=== PATIENT | male | born 1955 | race Caucasian/White ===

== ENCOUNTER 2021-11-16 02:19 | Inpatient (IN) | payer MEDICARE, SELFPAY ==
[2021-11-16] VITALS (48 sets, daily range): BP systolic 102–207; BP diastolic 59–102; PULSE 58–156; RESP 7–27; TEMP 36.2–36.6; O2SAT 93–100; BMI 30.2
--- NOTE | ~2021-11-16 | XR_ITS ---
XR chest 1V portable DATE: 11/16/2021 02:54 INDICATION: Chest pain TECHNIQUE: Portable upright AP chest on 11/16/2021 at 0233 hours COMPARISON: June 25, 2010 PA and lateral chest FINDINGS: Status post sternotomy since 06/25/2010. Normal heart size. Aortic arch calcification. No hi lar or mediastinal enlargement. Mild bilateral apical capping. No pulmonary infiltrate or consolidation, pleural effusion or pulmonar y vascular congestion or pneumothorax is detected. IMPRESSION: Status post sternotomy; no active cardiopulmonary disease Reviewed, dictated and finalized at location A.
--- NOTE | 2021-11-16 02:24 | ECG_ITS ---
Measurements Intervals [place] Rate: 138 P: [place]: 0 QRS: 75 QRSD: 110 T: -62 QT: 310 QTc: 470 Interpretive Statements ATRIAL FIBRILLATION WITH RAPID VENTRICULAR RESPONSE INTRAVENTRICULAR CONDUCTION DELAY ST-T WAVE ABNORMALITY IN ANTEROLAT/INF LEADS- CONSIDER ISCHEMIA BASELINE WANDER- II, III, AVR, AVF ABNORMAL ECG Electronically Signed On 11-16-2021 9:58:54 CDT by Rome Harry D.O.
[2021-11-16 02:37] LABS: Basophils Absolute Auto 0.1 K/mm3 (0.0-0.1); Basophils Percent Auto 0.8 % (0.2-1.2); Eosinophils Absolute Auto 0.5 K/mm3 (0-0.3); Hematocrit 44.9 % (42.0-52.0); Hemoglobin 14.8 g/dL (14.0-18.0); Immature Granulocyte Absolute 0.04 K/mm3 (0.00-0.031); Immature Granulocyte Percent A 0.5 % (0-0.5); Lymphocytes Absolute Auto 2.71 K/mm3 (0.9-3.2); Lymphocytes Percent Auto 31.2 % (18.3-44.2); Mean Corpuscular Hemoglobin 28.1 pg (26-34); Mean Corpuscular Volume 85.4 fl (80-100); Mean Platelet Volume 11.5 fl (7.4-10.4); Monocytes Absolute Auto 0.9 K/mm3 (0.1-0.6); Neutrophils Absolute Auto 4.5 K/mm3 (1.3-6.7); Neutrophils Percent Auto 51.5 % (45.5-73.1); Platelet Count Result 196 k/mm3 (150-375); Red Blood Count 5.26 M/mm3 (4.6-6.20); Red Cell Distribution Width 14.1 % (11.5-14.5); White Blood Count 8.7 K/mm3 (4.5-10.0)
[2021-11-16 02:47] LABS: Alanine Aminotransferase 13 U/L (6-50); Albumin Level 4.7 g/dL (3.5-5.1); Alkaline Phosphatase 91 U/L (38-126); Anion Gap 10 mmol/L (8-16); Aspartate Amino Transferase 18 U/L (17-59); Bilirubin,Total 0.3 mg/dL (0.2-1.3); Blood Urea Nitrogen 17 mg/dL (9-20); Calcium 8.7 mg/dL (8.4-10.2); Carbon Dioxide 25 mmol/L (22-30); Chloride 105 mmol/L (98-107); Estimated CRCL calculation 82 ml/min; Estimated Glomerular Filt Rate > 60; Glucose 169 mg/dL (65-110); Lipase 81 U/L (23-300); Potassium 3.8 mmol/L (3.4-5.0); Prothrombin Time 13.1 Seconds (11.1-14.7); Sodium 140 mmol/L (137-145)
[2021-11-16 02:48] LABS: Partial Thromboplastin Time 35.8 SECONDS (22.3-36.8)
[2021-11-16] MEDS: NITROGLYCERIN SL 0.4 MG TABLET SUBLINGUAL ×2 (02:48→02:53)
--- NOTE | 2021-11-16 02:58 | PC.NURSE ---
to hold 3rd nitro dose d/t patient increased heart rate and pt complaint of feeling flushed after 2nd nitro admin.
[2021-11-16 02:59] LABS: NT Pro B Type Natriuretic Pept 439 pg/mL (5-100); Troponin I 0.016 ng/mL (0.000-0.034)
--- NOTE | 2021-11-16 02:59 | ECG_ITS ---
Measurements Intervals [place] Rate: 92 P: [place]: 0 QRS: 65 QRSD: 109 T: -64 QT: 365 QTc: 452 Interpretive Statements ATRIAL FIBRILLATION CANNOT RULE OUT SEPTAL INFARCT, AGE INDETERMINATE ST-T WAVE ABNORMALITY IN ANTEROLAT/INF LEADS- CONSIDER ISCHEMIA ABNORMAL ECG Electronically Signed On 11-16-2021 10:02:44 CDT by Rome Harry D.O.
[2021-11-16] MEDS: dilTIAZem HCl INJ 25 MG/5 ML VIAL 20 MG IV PUSH (03:03)
--- NOTE | 2021-11-16 03:06 | ED.GENADULT ---
HPI - General Adult General Chief complaint: Chest Pain Stated complaint: CHEST PAIN Time Seen by Provider: 11/16/21 02:33 History of Present Illness HPI narrative: Patient is a 66-year-old gentleman who presents the emergency department with chief complaint of chest pain. Patient reports that he is scheduled to have a cardiac catheterization on Thursday by Dr. Hawley patient states he had a recent positive stress test and has had a prior bypass in the past. Patient states that this evening he got up and noticed that he started having pressure in his chest. Patient states he called EMS he took 4 baby aspirin at that time and is still having a tightness and fullness sensation in his chest the patient also feels as though his heart is beating irregular. Patient reports no prior history of atrial fibrillation. Related Data Home Medications Medication Instructions Recorded Confirmed aspirin 81 mg chewable tablet 81 mg PO DAILY 08/09/20 11/15/21 (Jaqueline Chewable Low Dose Aspirin) lisinopril 20 mg tablet 20 mg PO DAILY 08/09/20 11/15/21 metoprolol tartrate 50 mg tablet 50 mg PO BID 08/09/20 11/15/21 rosuvastatin 5 mg tablet (Crestor) 5 mg PO DAILY 08/09/20 11/15/21 Allergies Allergy/AdvReac Type Severity Reaction Status Date / Time No Known Allergies Allergy Mild Unverified 11/16/21 02:30 Review of Systems Review of Systems: A 10 system review of systems was completed on the patient and is negative except for what is stated in the HPI. Nursing and ancillary documentation was reviewed. [facility] Past Medical History Medical History Arterial disease Benign hypertension Elevated LFTs Hepatitis C Vision loss of right eye Family History Family History Other Carcinoma of colon Diabetes mellitus Family history of cardiovascular disease Family history of coronary artery disease Family history of lung cancer Family history of malignant neoplasm of breast in first degree relative Hypertension Social History Social History Smoking status: Former smoker Tobacco type: cigarettes Second hand tobacco smoke exposure: No Smoking end date: 05/04/04 Alcohol intake: unknown Substance use: never Substance use type: does not use Last use: 15 years ago Spiritual care concerns: No Exam Narrative: GENERAL: Well-appearing, well-nourished, and in no acute distress. HEAD: Normocephalic, atraumatic. EYES: PERRLA and EOMI. ENT: Nares clear, no rhinorrhea or epistaxis. Mucous membranes moist. NECK: Supple. CHEST: Clear to auscultation. No respiratory distress. HEART: Irregular rate and rhythm. No murmur heard. Normal peripheral pulses. ABDOMEN: Soft, nontender, nondistended, normal active bowel sounds. EXTREMITIES: Normal range of motion. No edema. SKIN: Warm, dry, no rash. NEURO: No focal deficits. Alert and oriented x3. PSYCH: Normal mood and affect. Course Course Emergency Course: Initial EKG interpreted by me atrial fibrillation with a rate of [address] segment abnormalities no ST elevation present After receiving nitroglycerin the patient started becoming more tachycardic and had rapid ventricular response with a rate of 138. The patient was given a Cardizem bolus and will be started on a Cardizem drip. Vital Signs Vital signs: Vital Signs Temperature 36.2 C L 11/16/21 02:19 Pulse Rate 95 11/16/21 02:19 Respiratory Rate 20 11/16/21 02:19 Blood Pressure 196/99 H 11/16/21 02:19 Pulse Oximetry 98 11/16/21 02:19 Oxygen Delivery Room Air 11/16/21 02:19 Temperature 36.2 C L 11/16/21 02:19 Pulse Rate 108 H 11/16/21 03:15 Respiratory Rate 27 H 11/16/21 03:15 Blood Pressure 142/69 H 11/16/21 03:12 Pulse Oximetry 96 11/16/21 03:52 Oxygen Delivery Nasal Cannula 11/16/21 03:
[2021-11-16] MEDS: dilTIAZem 100 MG/100 ML 100 MG/100 ML BAG IV CONT (03:07)
[2021-11-16] MEDS: MORPHINE SULFATE (*CRX) 4 MG/ML INJ IV PUSH (03:10)
--- NOTE | 2021-11-16 03:54 | PM.IMHP ---
H&P: HPI History of Present Illness Date/Time: 11/16/21 03:54 Chief Complaint: Chest pain Narrative: This is a 66-year-old male with past medical history significant for coronary artery disease, type 2 diabetes mellitus, former smoker. Patient presents to the emergency room due to sudden onset of chest pain waking him from sleep at around 2:00 a.m., prior to these patient went to bed and was feeling his usual has been his usual state of health although is scheduled for left heart catheterization a coming appointment. Pain is felt like indigestion, it was 6/10 in intensity and felt pounding on his chest decided to come to the emergency room for evaluation of these denies any nausea, vomiting, abdominal pain, diarrhea, pain was nonradiating localized to the retrosternal area did not have any dizziness, lightheadedness, or syncope or near syncope, no ankle swelling no leg swelling no pedal swelling no PND, no orthopnea, no fevers, no rigors, no chills, no cough. Upon arrival to emergency room patient was found to be on AFib with rapid ventricular response and started on diltiazem drip preliminary workup was significant for EKG with ST segment and T-wave changes. Patient is being admitted for further evaluation, management and treatment. Review of Systems Review of Systems: Chest pain, pounding of the chest. Constitutional: Constitutional: Denies body ache(s), Denies chills, Denies fatigue, Denies fever(s), Denies lethargy, Denies malaise, Denies night sweats and Denies weakness Eyes: Eyes: Denies change in vision ENT: Denies dysphagia, Denies vertigo, Denies dizziness, Denies nasal congestion, Denies nasal discharge, Denies nasal obstruction and Denies odynophagia Cardiovascular: Cardiovascular: Reports chest pain, Denies syncope, Denies pedal edema, Reports irregular heart rhythm, Denies leg edema, Denies lightheadedness, Reports palpitations, Denies dyspnea on exertion and Denies paroxysmal nocturnal dyspnea Respiratory: Respiratory: Denies chest congestion, Denies cough and Denies excessive phlegm production Gastrointestinal: Gastrointestinal: Denies abdominal pain, Denies dyspepsia, Denies heartburn, Denies diarrhea, Denies nausea and Denies vomiting Genitourinary: Genitourinary: Denies dysuria Musculoskeletal: Musculoskeletal: Denies back pain, Denies myalgias, Denies joint swelling and Denies muscle weakness Integumentary/Breasts: Skin/Breast: Denies rash Neurologic: Denies vertigo, Denies dizziness, Denies focal weakness and Denies Sensory deficit (Neuro) Psychiatric: Psychiatric: Reports no additional psychiatric complaints and Reports as per HPI Endocrine: Endocrine: Denies cold intolerance, Denies fatigue, Denies flushing, Denies heat intolerance, Denies polyphagia, Denies polydipsia and Denies palpitations Hematologic/Lymphatic: Hematologic/Lymphatic: Reports no additional hematologic/lymphatic complaints and Reports as per HPI Allergic/Immunologic: Allergic/Immunologic: Reports no additional allergic/immunologic complaints and Reports as per HPI PMFSH Past Medical History Medical History Arterial disease Benign hypertension Elevated LFTs Hepatitis C Vision loss of right eye Family History Family History (Updated 11/16/21 @ 05:29 by Sarah Connor RN) Father Carcinoma of colon Family history of cardiovascular disease Acute myocardial infarction Family history of coronary artery disease Hypertension Sibling Diabetes mellitus Family history of coronary artery disease Hx of CABG Family history of malignant neoplasm of breast in first degree relative Hypertension Sibling Diabetes mellitus Family history of coronary artery disease Hx of CABG Heart valve problem Hypertension Mother Family history of lung cancer Social History Social History Smoking status: Former
[2021-11-16 03:55] LABS: Appearance Urine Clear (Clear); Bilirubin Urine Negative (Negative); Blood Urine Trace-lysed (Negative); Glucose Urine UA Negative (Negative); Ketones Urine Negative (Negative); Leukocyte Esterase Ur Negative LEU/UL (Negative); Nitrate Urine Negative (Negative); Protein Urine 1+ mg/dL (Negative); Specific Grav Ur 1.015 (1.001-1.035); Urobilinogen Urine 0.2 mg/dL (<2.0)
[2021-11-16] MEDS: HEPARIN SODIUM 5,000 UNITS/ML VIAL 7500 UNITS IV PUSH (04:04)
[2021-11-16] MEDS: HEPARIN SOD/D5W 100 UNITS/ML 25,000 UNITS/250 ML BAG 15 UNITS IV CONT ×2 (04:04→19:34)
[2021-11-16 04:13] LABS: Mucus Urine Rare /lpf; RBC Urine 0-2 /hpf (0-2); WBC Urine 0-3 /hpf
[2021-11-16 04:24] LABS: Add Urine Microscopic? YES; Color Urine Light Yellow (Yellow)
--- NOTE | 2021-11-16 05:49 | PC.NURSE ---
This patient, Saw Thomas, was admitted to IMU Room 211-01. Patient/family oriented to hospital policies and general routines including ID bracelet, bed and alarms, visiting hours, pain management, procedures, bathroom and other care routines, personal items, smoking policy, room service/diet, and visiting hours. Patient/Family are encouraged to report perceived risks to care and to ask questions if they do not understand what they are told or what they should do.
--- NOTE | 2021-11-16 08:08 | PM.CNCAR ---
Assessment and Plan Assessment and plan (1) Chest pain: Code(s): R07.9 - Chest pain, unspecified Status: Acute (2) Atrial fibrillation with rapid ventricular response: Code(s): I48.91 - Unspecified atrial fibrillation Status: Acute (3) History of coronary artery bypass graft x 3: Code(s): Z95.1 - Presence of aortocoronary bypass graft Status: Acute Plan This is a 66-year-old man with the above-mentioned history of coronary disease. He has a history of recent chest pain incidence that are atypical of angina and an abnormal nuclear stress test as described above. He enters the hospital in the middle of the night with chest discomfort and palpitation was found to be in atrial fibrillation. Of course he was placed on intravenous diltiazem is heart rate is improved and he is minimally symptomatic at this time. He is anticoagulated with IV heparin. I believe we need to attempt to restore sinus rhythm since he has atrial fib of new onset. I am going to start by transitioning his beta-alicia from metoprolol to sotalol. His MICHAEL-inhibitor has not been reordered I am going to hold on that until we get him back into sinus rhythm so he is not too hypotensive. Will continue IV heparin for his anticoagulation given the plans to perform a coronary angiogram in the near future. If he converts medically with sotalol we will certainly be able to continue his angiographic assessment on Thursday as scheduled. If not we will be arranging for DC cardioversion on Thursday and delaying his angiogram. Jatinder Hawley MD [facility] History of Present Illness History of Present Illness Consult date/time: 11/16/21 08:08 Consult reason: atrial fibrillation Reason For Visit: CHEST PAIN, new onset a fib with rvr Narrative: This is a 66-year-old patient who is known to me with coronary artery disease who entered the hospital through the emergency room in the middle of the night with symptoms of chest pain and palpitations and was found to be in atrial fibrillation with moderately rapid ventricular response. He was placed on IV diltiazem and evaluated in the emergency room. With the diltiazem is heart rate improved and he became essentially asymptomatic. He has been up in IMU he appears to be comfortable this morning and does not have any other complaints. Mr. Champagne does not have any previous history of atrial fibrillation that I have any record of. He does have a history of coronary artery disease and 1 previous episode of supraventricular tachycardia about 12 years ago. He presented to the hospital with coronary to symptoms in December of 2017. He was having exertional chest pain at that time and stress testing was markedly abnormal. Catheterization demonstrated significant left main coronary disease as well as high-grade stenosis in the proximal LAD, total occlusion of the right coronary artery with collateral flow. He was referred to [facility] for bypass surgery in received an SOFI graft to the LAD a vein graft to the OM and a vein graft to the PDA. He has done well since then. He was seen in my office recently reporting symptoms of intermittent chest pain in a nonexertional fashion. A nuclear stress test was done which demonstrated a reversible inferior defect which was felt to call into question the patency of his RCA graft and for this reason follow-up angiography was recommended. As it happens that is scheduled for the 1st part of this coming week. Yesterday he states he was at a race track in [place] and after he went home and had a snack he suddenly felt poorly with palpitations and chest pain and then came into the emergency room as described above. His troponin levels are normal. Electrocardiogram shows AFib with nonspecific ST and T abnormalities. Other than the atrial fib it is not significantly different from ECG during his recent stress test. Review of Systems Constitutional: Constitutional: Repor
[2021-11-16] MEDS: ASPIRIN 81 MG CHEWABLE TABLET PO (09:08)
[2021-11-16] MEDS: SOTALOL HCL 80 MG TABLET PO ×2 (09:08→20:55)
--- NOTE | 2021-11-16 10:15 | ECG_ITS ---
Measurements Intervals [place] Rate: 83 P: [place]: 0 QRS: 75 QRSD: 105 T: -57 QT: 381 QTc: 449 Interpretive Statements ATRIAL FIBRILLATION ST-T WAVE ABNORMALITY IN INF/LAT LEADS- CONSIDER ISCHEMIA ABNORMAL ECG Electronically Signed On 11-16-2021 15:19:58 CDT by Rome Harry D.O.
--- NOTE | 2021-11-16 11:03 | PM.IMPN ---
Progress Note: A&P Assessment and Plan (1) Chest pain: Code(s): R07.9 - Chest pain, unspecified Status: Acute Assessment and Plan: Non STEMI. Plan for catheterization on Thursday. Currently on heparin drip. (2) Atrial fibrillation with rapid ventricular response: Code(s): I48.91 - Unspecified atrial fibrillation Status: Acute Assessment and Plan: Monitor. Patient was on Cardizem drip this is been stopped. Continue p.o. medications. Currently on heparin (3) DM (diabetes mellitus), type 2, uncontrolled, periph vascular complic: Code(s): E11.51 - Type 2 diabetes mellitus with diabetic peripheral angiopathy without gangrene; E11.65 - Type 2 diabetes mellitus with hyperglycemia Status: Acute Assessment and Plan: Monitor blood sugars (4) Coronary artery disease: Qualifiers: Coronary Disease-Associated Artery/Lesion type: [place] artery [place] vs. transplanted heart: [place] heart Associated angina: with stable angina Qualified Code(s): I25.118 - Atherosclerotic heart disease of [place] coronary artery with other forms of angina pectoris Code(s): I25.10 - Atherosclerotic heart disease of [place] coronary artery without angina pectoris Status: Acute (5) Primary hypertension: Code(s): I10 - Essential (primary) hypertension Status: Acute Assessment and Plan: Monitor (6) Mixed hyperlipidemia: Code(s): E78.2 - Mixed hyperlipidemia Status: Acute Assessment and Plan: Monitor (7) PVD (peripheral vascular disease): Code(s): I73.9 - Peripheral vascular disease, unspecified Status: Acute Subjective Date/time seen: 11/16/21 11:03 Denies chest pain Exam Narrative: General: alert and oriented Psych: appropriate mood nad affect Eyes: PERRLA Neck: Trachea midline, no new lesions Skin: no changes Lungs: CTA Cardiac: Normal S1,S2, no MGR ABD: soft, nd, nt, nbs Ext: no new lesions, no cce Vasc: Pulses intact Objective Data Vital Signs Vital Signs: Vital Signs - 24 hr 11/16/21 02:19 11/16/21 02:28 11/16/21 02:29 Temperature 97.1 F L Pulse Rate 95 100 Respiratory Rate 20 Blood Pressure 196/99 H Pulse Oximetry 98 98 Oxygen Delivery Room Air Room Air Oxygen Flow Rate 11/16/21 02:23 11/16/21 02:24 11/16/21 02:48 Temperature Pulse Rate 94 106 H 101 H Respiratory Rate 16 13 19 Blood Pressure 196/99 H 207/78 H Pulse Oximetry 98 98 97 Oxygen Delivery Oxygen Flow Rate 11/16/21 02:53 11/16/21 02:57 11/16/21 03:00 Temperature Pulse Rate 105 H 156 H 124 H Respiratory Rate 12 14 16 Blood Pressure 190/102 H 153/84 H Pulse Oximetry 97 96 96 Oxygen Delivery Oxygen Flow Rate 11/16/21 03:07 11/16/21 02:30 11/16/21 02:32 Temperature Pulse Rate 119 H 91 102 H Respiratory Rate 13 19 Blood Pressure 179/96 H 197/86 H Pulse Oximetry 98 98 Oxygen Delivery Oxygen Flow Rate 11/16/21 02:45 11/16/21 02:51 11/16/21 02:56 Temperature Pulse Rate 110 H 131 H 139 H Respiratory Rate 18 19 17 Blood Pressure 207/78 H 190/102 H Pulse Oximetry 97 96 Oxygen Delivery Oxygen Flow Rate 11/16/21 03:00 11/16/21 03:01 11/16/21 03:07 Temperature Pulse Rate 129 H 123 H 100 Respiratory Rate 18 12 14 Blood Pressure 153/84 H 179/96 H Pulse Oximetry 93 95 97 Oxygen Delivery Oxygen Flow Rate 11/16/21 03:12 11/16/21 03:15 11/16/21 03:52 Temperature Pulse Rate 87 108 H Respiratory Rate 11 L 27 H Blood Pressure 142/69 H Pulse Oximetry 96 97 96 Oxygen Delivery Nasal Cannula Oxygen Flow Rate 2 11/16/21 04:43 11/16/21 03:22 11/16/21 03:30 Temperature Pulse Rate 100 80 Respiratory Rate 21 H 7 L Blood Pressure 127/80 Pulse Oximetry 97 97 98 Oxygen Delivery Room Air Oxygen Flow Rate 11/16/21 03:36 11/16/21 03:45 11/16/21 03:46 Temperature Pulse Rate 100 121 H 94 Respiratory Rate 11 L 14 15
[2021-11-16 11:19] LABS: Partial Thromboplastin Time 105.4 SECONDS (22.3-36.8)
[2021-11-16 17:09] LABS: Partial Thromboplastin Time 79.7 SECONDS (22.3-36.8)
[2021-11-16 20:01] LABS: Glucose Point of Care 175 mg/dl (65-105)
--- NOTE | 2021-11-16 23:00 | ECG_ITS ---
Measurements Intervals [place] Rate: 56 P: 10 NM: 140 QRS: 78 QRSD: 104 T: 85 QT: 483 QTc: 469 Interpretive Statements SINUS BRADYCARDIA CANNOT RULE OUT SEPTAL INFARCT, AGE INDETERMINATE ST-T WAVE ABNORMALITY IN LATERAL LEADS- CONSIDER ISCHEMIA BASELINE WANDER- II, III, AVR, AVL, AVF, V1-V6 ABNORMAL ECG Electronically Signed On 11-17-2021 9:37:26 CDT by Rome Harry D.O.
[2021-11-17] VITALS (16 sets, daily range): BP systolic 121–166; BP diastolic 59–87; PULSE 55–77; RESP 16–20; TEMP 35.5–37.3; O2SAT 18–100
[2021-11-17 04:49] LABS: Basophils Absolute Auto 0.1 K/mm3 (0.0-0.1); Basophils Percent Auto 0.6 % (0.2-1.2); Eosinophils Absolute Auto 0.6 K/mm3 (0-0.3); Eosinophils Percent Auto 5.8 % (0-4.4); Hematocrit 43.6 % (42.0-52.0); Hemoglobin 14.1 g/dL (14.0-18.0); Immature Granulocyte Absolute 0.05 K/mm3 (0.00-0.031); Immature Granulocyte Percent A 0.5 % (0-0.5); Lymphocytes Absolute Auto 2.57 K/mm3 (0.9-3.2); Lymphocytes Percent Auto 25.6 % (18.3-44.2); Mean Corpuscular HGB Conc 32.3 g/dl (32-36); Mean Corpuscular Hemoglobin 27.9 pg (26-34); Mean Corpuscular Volume 86.2 fl (80-100); Mean Platelet Volume 11.9 fl (7.4-10.4); Monocytes Absolute Auto 0.8 K/mm3 (0.1-0.6); Monocytes Percent Auto 8.4 % (2.6-8.5); Neutrophils Percent Auto 59.1 % (45.5-73.1); Platelet Count Result 190 k/mm3 (150-375); Red Blood Count 5.06 M/mm3 (4.6-6.20); Red Cell Distribution Width 14.1 % (11.5-14.5); White Blood Count 10.1 K/mm3 (4.5-10.0)
[2021-11-17 08:22] LABS: Glucose Point of Care 157 mg/dl (65-105)
[2021-11-17] MEDS: ASPIRIN 81 MG CHEWABLE TABLET PO (09:33)
[2021-11-17] MEDS: SOTALOL HCL 80 MG TABLET PO ×2 (09:33→20:54)
--- NOTE | 2021-11-17 10:21 | PM.IMPN ---
Progress Note: A&P Assessment and Plan (1) Chest pain: Code(s): R07.9 - Chest pain, unspecified Status: Acute Assessment and Plan: Admit to IMU Serial cardiac enzymes Supportive care Cardiology consult -planned catheterization Thursday (2) Atrial fibrillation with rapid ventricular response: Code(s): I48.91 - Unspecified atrial fibrillation Status: Acute Assessment and Plan: On diltiazem drip Anticoagulated with heparin Continue to monitor (3) DM (diabetes mellitus), type 2, uncontrolled, periph vascular complic: Code(s): E11.51 - Type 2 diabetes mellitus with diabetic peripheral angiopathy without gangrene; E11.65 - Type 2 diabetes mellitus with hyperglycemia Status: Acute Assessment and Plan: Holding metformin Accu-Cheks AC and HS Insulin sliding scale (4) Coronary artery disease: Qualifiers: Coronary Disease-Associated Artery/Lesion type: [place] artery [place] vs. transplanted heart: [place] heart Associated angina: with stable angina Qualified Code(s): I25.118 - Atherosclerotic heart disease of [place] coronary artery with other forms of angina pectoris Code(s): I25.10 - Atherosclerotic heart disease of [place] coronary artery without angina pectoris Status: Acute Assessment and Plan: EKG with ST segment and T-wave changes Cardiology has been consulted Supportive care Catheterization planned for Thursday and (5) Primary hypertension: Code(s): I10 - Essential (primary) hypertension Status: Acute Assessment and Plan: Resume home meds Continue to monitor (6) Mixed hyperlipidemia: Code(s): E78.2 - Mixed hyperlipidemia Status: Acute Assessment and Plan: Patient not on a statin currently (7) PVD (peripheral vascular disease): Code(s): I73.9 - Peripheral vascular disease, unspecified Status: Acute Subjective Date/time seen: 11/17/21 10:21 No complaints. Heart rate controlled. No chest pain Exam Narrative: Patient is laying in a stretcher Const: General: comfortable, no acute distress, well developed, alert and awake Nutritional Appearance: average body habitus Orientation/consciousness: patient oriented x3 Other: Well-appearing HENMT: Head: normal to inspection, normocephalic and atraumatic Ears: hearing grossly normal bilaterally Face and sinus: normal facial exam Eyes: General: appearance normal, both eyes and all related structures Pupils: Equal, round and reactive pupils present EOM: EOMs intact bilaterally Neck: Neck: full ROM, no lymphadenopathy and no JVD Thyroid: thyroid normal Lymphatic: no lymphadenopathy noted Resp: Effort & Inspection: normal respiratory effort and able to speak in complete sentences Auscultation: clear to auscultation bilaterally Cardio: Jugular venous distension: no JVD Rate: regular rate Rhythm: regular rhythm Heart sounds: S1 normal heart sound present and S2 normal heart sound present : General: Yes deferred Skin: Rashes: no rashes Wounds: no wounds Neuro: General: patient oriented x3, CN's II-XI intact bilaterally and Unable to assess gait Cranial nerves: Yes CN's II-XII intact bilaterally and Yes Equal, round and reactive pupils present Cognition (Neuro): normal cognition Speech: normal speech Gait exam (Neuro): Unable to assess gait Motor exam (neuro): 5/5 motor strength present throughout Sensory Exam: No Sensory deficit (Neuro) Extrem: General: normal to inspection, full ROM, no joint enlargement and no pedal edema Objective Data Vital Signs Vital Signs: Vital Signs - 24 hr 11/16/21 11:52 11/16/21 12:00 11/16/21 12:00 Temperature 97.9 F Pulse Rate 71 70 Respiratory Rate 20 Blood Pressure 102/59 L Pulse Oximetry 98 Oxygen Delivery Room Air 11/16/21 14:00 11/16/21 14:50 11/16/21 16:00 Temperature Pulse Rate 79 65 63 Respiratory Rate Blood Pressure Pulse Oximetry Oxygen De
--- NOTE | 2021-11-17 10:47 | PM.PNCARD ---
Progress Note: A&P Assessment and Plan (1) Atrial fibrillation with rapid ventricular response: Code(s): I48.91 - Unspecified atrial fibrillation Status: Acute (2) Chest pain: Code(s): R07.9 - Chest pain, unspecified Status: Acute (3) History of coronary artery bypass graft x 3: Code(s): Z95.1 - Presence of aortocoronary bypass graft Status: Acute Plan 66-year-old man with coronary artery disease previous surgical revascularization intermittent episodes of chest pain recently. He had abnormal stress testing as an outpatient with catheterization that was scheduled as an outpatient for tomorrow. He entered the hospital over the weekend because of intermittent atrial fibrillation which was primarily causing the chest discomfort that he was complaining about. He has been converted to sinus rhythm with sotalol. We will proceed with follow-up angiography as was previously scheduled for tomorrow. Will stop his heparin infusion in the morning. Further recommendations will be forthcoming following his angiography. Jatinder Hawley MD [facility] Subjective Date/time seen: Date of service: 11/17/21 10:47 Interval history: Follow-up visit in this 66-year-old man with: Coronary artery disease with recent episodes of intermittent chest pain. He also has a history of paroxysmal atrial fib in came in over the weekend with a episode of symptomatic AF. Recent outpatient stress testing showed evidence of inferior ischemia prompting the recommendation for follow-up catheterization which was scheduled as an outpatient for tomorrow. Patient feels well today and is asymptomatic. He has converted to sinus rhythm with the sotalol. Maintains on IV heparin. No chest pain or other symptoms this morning. Exam Const: General: comfortable and no acute distress Other: Pleasant gentleman comfortable cooperative no distress HENMT: Mouth: Yes moist mucous membranes Eyes: Sclera: sclerae normal Pupils: Equal, round and reactive pupils present Neck: Neck: supple and no JVD Other: Normal carotid pulses Resp: Effort & Inspection: normal respiratory effort Auscultation: clear to auscultation bilaterally Cardio: Rate: regular rate Rhythm: regular rhythm GI: GI Palp: Yes Soft to palpation Auscultation: normal bowel sounds Skin: General skin exam: normal color Neuro: Other: Normal cognition Extrem: Other: No edema good distal pulses Objective Data Vital Signs Vital Signs: Vital Signs - 24 hr 11/16/21 11:52 11/16/21 12:00 11/16/21 12:00 Temperature 36.6 C Pulse Rate 71 70 Respiratory Rate 20 Blood Pressure 102/59 L Pulse Oximetry 98 Oxygen Delivery Room Air 11/16/21 14:00 11/16/21 14:50 11/16/21 16:00 Temperature Pulse Rate 79 65 63 Respiratory Rate Blood Pressure Pulse Oximetry Oxygen Delivery 11/16/21 16:00 11/16/21 16:00 11/16/21 18:00 Temperature 36.4 C Pulse Rate 65 63 Respiratory Rate 18 Blood Pressure 140/67 Pulse Oximetry 99 Oxygen Delivery Room Air 11/16/21 19:44 11/16/21 20:00 11/16/21 20:00 Temperature 36.6 C Pulse Rate 64 64 Respiratory Rate 18 Blood Pressure 146/65 H Pulse Oximetry 98 Oxygen Delivery Room Air 11/16/21 20:55 11/16/21 21:57 11/16/21 23:14 Temperature Pulse Rate 75 61 Respiratory Rate Blood Pressure Pulse Oximetry Oxygen Delivery Room Air 11/16/21 23:27 11/17/21 00:00 11/17/21 01:59 Temperature 36.3 C L Pulse Rate 58 L 63 67 Respiratory Rate 20 Blood Pressure 124/63 Pulse Oximetry 99 Oxygen Delivery 11/17/21 03:05 11/17/21 03:10 11/17/21 04:00 Temperature 36.1 C L Pulse Rate 58 L 55 L Respiratory Rate 20 Blood Pressure 121/59 L Pulse Oximetry 99 Oxygen Delivery Room Air 11/17/21 06:00 11/17/21 09:23 11/17/21 08:00 Temperature 36.5 C Pulse Rate 66 58 L Respiratory Rate 16 Blood Pressure 140/64 Pulse Oximet
--- NOTE | 2021-11-17 11:34 | ECG_ITS ---
Measurements Intervals [place] Rate: 56 P: 20 PA: 158 QRS: 68 QRSD: 107 T: -68 QT: 458 QTc: 443 Interpretive Statements SINUS BRADYCARDIA ST-T WAVE ABNORMALITY IN INF/LAT LEADS- CONSIDER ISCHEMIA ABNORMAL ECG Electronically Signed On 11-17-2021 22:56:43 CDT by [place] Harry D.O.
[2021-11-17 12:58] LABS: Glucose Point of Care 160 mg/dl (65-105)
[2021-11-17] MEDS: HEPARIN SOD/D5W 100 UNITS/ML 25,000 UNITS/250 ML BAG 15 UNITS IV CONT (14:09)
[2021-11-17 17:01] LABS: Glucose Point of Care 144 mg/dl (65-105)
[2021-11-17 20:17] LABS: Glucose Point of Care 215 mg/dl (65-105)
--- NOTE | 2021-11-17 23:00 | ECG_ITS ---
Measurements Intervals [place] Rate: 57 P: 39 [place]: 161 QRS: 85 QRSD: 105 T: -60 QT: 459 QTc: 449 Interpretive Statements SINUS BRADYCARDIA ST-T WAVE ABNORMALITY IN INF/LAT LEADS- CONSIDER ISCHEMIA BASELINE WANDER- V5 ABNORMAL ECG Electronically Signed On 11-17-2021 23:24:06 CDT by [place] Harry D.O.
[2021-11-18] VITALS (28 sets, daily range): BP systolic 134–171; BP diastolic 52–73; PULSE 52–79; RESP 14–72; TEMP 36.1–36.9; O2SAT 92–100
[2021-11-18 04:45] LABS: Partial Thromboplastin Time 85.7 SECONDS (22.3-36.8)
[2021-11-18] MEDS: HEPARIN SOD/D5W 100 UNITS/ML 25,000 UNITS/250 ML BAG 15 UNITS IV CONT (06:58)
[2021-11-18 07:57] LABS: Glucose Point of Care 168 mg/dl (65-105)
[2021-11-18] MEDS: ASPIRIN 81 MG CHEWABLE TABLET PO (08:36)
[2021-11-18] MEDS: SOTALOL HCL 80 MG TABLET PO ×2 (08:36→20:25)
--- NOTE | 2021-11-18 09:17 | WPDMODSED ---
Moderate Sedation Note-Pt Data Patient Data Diagnosis: Coronary artery disease with previous CABG intermittent chest pain with at nuclear stress test admission with symptomatic atrial fibrillation, conversion to sinus rhythm medically Present Complaint: no complaints Procedure to be performed/Plan: left heart catheterization with bypass graft exam Allergies Allergy/AdvReac Type Severity Reaction Status Date / Time No Known Allergies Allergy Mild Verified 11/16/21 05:19 Home Medications Medication Instructions Recorded Confirmed Type aspirin 81 mg chewable tablet 81 mg PO HS 08/09/20 11/16/21 History (Jaqueline Chewable Low Dose Aspirin) lisinopril 20 mg tablet 20 mg PO HS 08/09/20 11/16/21 History metoprolol tartrate 50 mg tablet 50 mg PO DAILY 08/09/20 11/16/21 History metformin 500 mg tablet,extended 1,000 mg PO QAM 11/16/21 11/16/21 History release 24 hr Current Medications: Active Medications Aspirin (Aspirin 81 Mg Chewable Tablet) 81 mg PO DAILY@0800 [facility] Last Admin: 11/18/21 08:36 Dose: 81 mg Heparin Sodium (Porcine) (Heparin Sodium 5,000 Units/Ml Vial) 6,500 units IV PUSH PRN PRN PRN Reason: aPTT less than 55 seconds Heparin Sodium (Porcine) (Heparin Sodium 5,000 Units/Ml Vial) 3,000 units IV PUSH PRN PRN PRN Reason: aPTT 55 - 70 seconds Nitroglycerin (Nitroglycerin Sl 0.4 Mg Tablet) 0.4 mg SUBLINGUAL Q5MIN PRN PRN Reason: Chest Pain Last Admin: 11/16/21 02:53 Dose: 0.4 mg Sotalol HCl (Sotalol Hcl 80 Mg Tablet) 80 mg PO Q12HR [facility] Last Admin: 11/18/21 08:36 Dose: 80 mg Sedation/Anesthesia: No previous sedation/anesthesia problems (including family history). [facility] Past Medical History Medical History Arterial disease Benign hypertension Elevated LFTs Hepatitis C Vision loss of right eye Family History Family History (Updated 11/16/21 @ 05:29 by Sarah Connor RN) Father Carcinoma of colon Family history of cardiovascular disease Acute myocardial infarction Family history of coronary artery disease Hypertension Sibling Diabetes mellitus Family history of coronary artery disease Hx of CABG Family history of malignant neoplasm of breast in first degree relative Hypertension Sibling Diabetes mellitus Family history of coronary artery disease Hx of CABG Heart valve problem Hypertension Mother Family history of lung cancer Social History Social History Smoking status: Former smoker Tobacco type: cigarettes Second hand tobacco smoke exposure: No Smoking end date: 05/04/04 Alcohol intake: never Substance use: never Substance use type: does not use Last use: 15 years ago Living arrangements: alone Spiritual care concerns: No Mod Sed Physical Exam Physical Exam Pre Procedural Exam: Normal: Appearance, Neck, Throat, Airway, Lungs, Heart Size, Heart Rhythm, Neuro Exam and Extremities and Variation: Heart Rate ( bradycardic) Hours since solid foods: 12 Hours since liquid intake: 12 Mallampati Classification: class II Internal Medicine - PN: Obj Da Vital Signs Vital Signs: Vital Signs - 24 hr 11/17/21 09:23 11/17/21 12:00 11/17/21 16:00 Temperature 36.8 C 35.5 C L Pulse Rate 60 57 L Respiratory Rate 18 16 Blood Pressure 166/87 H 146/72 H Pulse Oximetry 96 99 18 L Oxygen Delivery Room Air 11/17/21 10:00 11/17/21 12:00 11/17/21 14:00 Temperature Pulse Rate 75 59 L 64 Respiratory Rate Blood Pressure Pulse Oximetry Oxygen Delivery 11/17/21 16:00 11/17/21 18:00 11/17/21 20:00 Temperature 36.1 C L Pulse Rate 59 L 68 68 Respiratory Rate 20 Blood Pressure 149/66 H Pulse Oximetry 98 Oxygen Delivery 11/17/21 20:00 11/17/21 20:00 11/17/21 20:54 Temperature Pulse Rate 65 65 77 Respiratory Rate 20 Blood Pressure Pulse Oximetry 9
--- NOTE | 2021-11-18 10:18 | WPDCARDPROC ---
Cardiac Cath Procedure Note Date of procedure:: 11/18/21 Performing physician:: Jatinder Hawley MD Indication:: coronary artery disease with previous surgical revascularization intermittent chest pain paroxysmal atrial fibrillation/ currently in sinus rhythm abnormal nuclear stress test Brief clinical history:: this is a 66-year-old man with well known coronary artery disease who underwent surgical revascularization previously. His operation consisted of an SOFI graft to the LAD, saphenous vein to the circumflex and saphenous vein to the RCA. He has been having intermittent episodes of chest pain and nuclear stress testing suggests inferior ischemia. His [place] right coronary artery is known to be occluded. He also carries the diagnosis of recently identified paroxysmal AFib has been started on sotalol and is in sinus rhythm currently. Procedure Procedure performed:: Coronary angiography internal mammary graft angiography left ventriculography Sedation/Medication given:: fentanyl 25 mg Versed 2 mg Case start time 9:26 a.m. case end time 10:11 a.m. Access site:: left femoral artery Estimated blood loss:: 30 cc Procedure note:: patient was brought to the cardiac catheterization lab in the postabsorptive state the femoral triangles were prepared and draped in the normal fashion. Anesthesia was given in the right groin with 1% lidocaine. The right femoral artery was punctured with very sluggish arterial flow. I was unable to advance a Sheryl wire into the artery. Two attempts were made at this and then this site was abandoned. Manual pressure was held. I then moved to the left groin where the femoral pulse was somewhat better. 1% lidocaine was injected in this area and then the left femoral artery was punctured and a wooly wire was advanced into the descending aorta. I then over the wooly wire from put a 5 [place] 23 cm sheath in the left femoral artery and over the wooly wire placed the left coronary diagnostic catheter in the central aorta. This catheter was then used for the left coronary angiograms. Subsequent catheter exchanges were all made over a long 260 J-wire exchange Wire. Following this I exchanged for the JR4 catheter. This was used to engage and inject the right coronary artery as well as to look for aorta coronary graft. I then used the JR4 catheter to access the left subclavian artery and approach the SOFI. The long J-wire was used to exchange this for an internal mammary catheter. This was used to engage and inject the left internal mammary graft. The SOFI catheter was then used also to look for aorta coronary graft. Following this the exchange wire was used to extend exchanged for a angled pigtail catheter which was placed into the left ventricle and used to measure left-sided hemodynamics and to inject LV g in the FERGUSON projection. After this the case was terminated. The patient was given 10 mg of IV hydralazine for systemic hypertension he is taken to the holding area for manual sheath removal. Findings:: hemodynamics: Central aortic pressure is 192 over 65 left ventricle 192/10 end-diastolic pressure 18 there is no gradient on pullback across. Left ventricle: the left ventricle is normal in size there is mild global hypokinesia noted with a global ejection fraction about 45%. No regional wall motion abnormalities. Concentric LVH is noted. The left main coronary artery is medium in caliber there is a high-grade distal left main stenosis about 85-90%. The left anterior descending small in caliber proximally giving rise to a small diagonal branch and a small septal perforating complex after this the LAD is 100% occluded. The circumflex is a moderate caliber vessel consisting of 2 marginal branches. First of these has a proximal stenosis of approximately 80%. The 2nd of these is free of disease. There is no competitive filling seen from either of these marginal branches from
[2021-11-18] MEDS: ACETAMINOPHEN 325 MG TABLET 650 MG PO ×2 (10:45→20:24)
[2021-11-18] MEDS: SODIUM CHLORIDE 0.9% IV 1,000 ML 125 ML IV CONT (12:13)
--- NOTE | 2021-11-18 12:14 | PM.IMPN ---
Progress Note: A&P Assessment and Plan (1) Chest pain: Code(s): R07.9 - Chest pain, unspecified Status: Acute Assessment and Plan: Status post catheterization. Multi-vessel coronary disease. No intervention. Medical management of coronary disease (2) Atrial fibrillation with rapid ventricular response: Code(s): I48.91 - Unspecified atrial fibrillation Status: Acute Assessment and Plan: Sotalol. Will need anticoagulation prior to discharge (3) DM (diabetes mellitus), type 2, uncontrolled, periph vascular complic: Code(s): E11.51 - Type 2 diabetes mellitus with diabetic peripheral angiopathy without gangrene; E11.65 - Type 2 diabetes mellitus with hyperglycemia Status: Acute Assessment and Plan: Monitor blood sugars (4) Coronary artery disease: Qualifiers: Coronary Disease-Associated Artery/Lesion type: [place] artery [place] vs. transplanted heart: [place] heart Associated angina: with stable angina Qualified Code(s): I25.118 - Atherosclerotic heart disease of [place] coronary artery with other forms of angina pectoris Code(s): I25.10 - Atherosclerotic heart disease of [place] coronary artery without angina pectoris Status: Acute Assessment and Plan: Medical management (5) Primary hypertension: Code(s): I10 - Essential (primary) hypertension Status: Acute Assessment and Plan: Resume home meds Continue to monitor (6) Mixed hyperlipidemia: Code(s): E78.2 - Mixed hyperlipidemia Status: Acute Assessment and Plan: Patient not on a statin currently (7) PVD (peripheral vascular disease): Code(s): I73.9 - Peripheral vascular disease, unspecified Status: Acute Subjective Date/time seen: 11/18/21 12:14 No complaints Exam Narrative: Patient is laying in a stretcher Const: General: comfortable, no acute distress, well developed, alert and awake Nutritional Appearance: average body habitus Orientation/consciousness: patient oriented x3 Other: Well-appearing HENMT: Head: normal to inspection, normocephalic and atraumatic Ears: hearing grossly normal bilaterally Face and sinus: normal facial exam Eyes: General: appearance normal, both eyes and all related structures Pupils: Equal, round and reactive pupils present EOM: EOMs intact bilaterally Neck: Neck: full ROM, no lymphadenopathy and no JVD Thyroid: thyroid normal Lymphatic: no lymphadenopathy noted Resp: Effort & Inspection: normal respiratory effort and able to speak in complete sentences Auscultation: clear to auscultation bilaterally Cardio: Jugular venous distension: no JVD Rate: regular rate Rhythm: regular rhythm Heart sounds: S1 normal heart sound present and S2 normal heart sound present : General: Yes deferred Skin: Rashes: no rashes Wounds: no wounds Neuro: General: patient oriented x3, CN's II-XI intact bilaterally and Unable to assess gait Cranial nerves: Yes CN's II-XII intact bilaterally and Yes Equal, round and reactive pupils present Cognition (Neuro): normal cognition Speech: normal speech Gait exam (Neuro): Unable to assess gait Motor exam (neuro): 5/5 motor strength present throughout Sensory Exam: No Sensory deficit (Neuro) Extrem: General: normal to inspection, full ROM, no joint enlargement and no pedal edema Objective Data Vital Signs Vital Signs: Vital Signs - 24 hr 11/17/21 16:00 11/17/21 14:00 11/17/21 16:00 Temperature 96 F L Pulse Rate 57 L 64 59 L Respiratory Rate 16 Blood Pressure 146/72 H Pulse Oximetry 18 L Oxygen Delivery 11/17/21 18:00 11/17/21 20:00 11/17/21 20:00 Temperature 97 F L Pulse Rate 68 68 65 Respiratory Rate 20 Blood Pressure 149/66 H Pulse Oximetry 98 Oxygen Delivery 11/17/21 20:00 11/17/21 20:54 11/17/21 22:00 Temperature Pulse Rate 65 77 63 Respiratory Rate 20 Blood Pressure Pulse Oximetry 98 Oxygen Del
--- NOTE | 2021-11-18 12:30 | ECG_ITS ---
Measurements Intervals [place] Rate: 63 P: 26 [place]: 156 QRS: 76 QRSD: 110 T: -32 QT: 440 QTc: 451 Interpretive Statements SINUS RHYTHM CONSIDER ANTERIOR INFARCT, AGE INDETERMINATE ST-T WAVE ABNORMALITY IN INF/LAT LEADS- CONSIDER ISCHEMIA ABNORMAL ECG Electronically Signed On 11-18-2021 18:40:56 CDT by Rome Harry D.O.
[2021-11-18 12:37] LABS: Glucose Point of Care 152 mg/dl (65-105)
[2021-11-18] MEDS: lisinopriL 20 MG TABLET PO (13:22)
[2021-11-18 16:58] LABS: Glucose Point of Care 174 mg/dl (65-105)
[2021-11-18 20:17] LABS: Glucose Point of Care 187 mg/dl (65-105)
--- NOTE | 2021-11-18 22:22 | ECG_ITS ---
Measurements Intervals [place] Rate: 61 P: 32 AL: 169 QRS: 72 QRSD: 107 T: -71 QT: 430 QTc: 437 Interpretive Statements SINUS RHYTHM ST-T WAVE ABNORMALITY IN ANTEROLAT/INF LEADS- CONSIDER ISCHEMIA BASELINE WANDER- II, III, AVR, AVL, AVF, V1-V6 ABNORMAL ECG Electronically Signed On 11-19-2021 7:49:17 CDT by [place] Harry D.O.
[2021-11-19] VITALS (8 sets, daily range): BP systolic 143–147; BP diastolic 63–67; PULSE 59–74; RESP 14–18; TEMP 36.1–36.2; O2SAT 97–98
[2021-11-19 05:05] LABS: Hematocrit 44.7 % (42.0-52.0); Hemoglobin 14.6 g/dL (14.0-18.0); Mean Corpuscular HGB Conc 32.7 g/dl (32-36); Mean Corpuscular Volume 85.6 fl (80-100); Mean Platelet Volume 11.6 fl (7.4-10.4); Platelet Count Result 199 k/mm3 (150-375); Red Blood Count 5.22 M/mm3 (4.6-6.20); Red Cell Distribution Width 13.8 % (11.5-14.5); White Blood Count 11.1 K/mm3 (4.5-10.0)
[2021-11-19 05:15] LABS: Anion Gap 9 mmol/L (8-16); Blood Urea Nitrogen 9 mg/dL (9-20); Calcium 8.8 mg/dL (8.4-10.2); Carbon Dioxide 25 mmol/L (22-30); Chloride 105 mmol/L (98-107); Estimated CRCL calculation 80 ml/min; Estimated Glomerular Filt Rate > 60; Glucose 145 mg/dL (65-110); Sodium 139 mmol/L (137-145)
[2021-11-19] MEDS: lisinopriL 20 MG TABLET PO (08:23)
[2021-11-19] MEDS: ASPIRIN 81 MG CHEWABLE TABLET PO (08:23)
[2021-11-19] MEDS: SOTALOL HCL 80 MG TABLET PO (08:23)
[2021-11-19 08:38] LABS: Glucose Point of Care 152 mg/dl (65-105)
--- NOTE | 2021-11-19 09:23 | PM.DS ---
DS: Admitting Diagnosis Discharge Date 11/1921 Admitting Diagnosis Chest pain DS: Discharge Diagnosis Discharge Diagnosis (1) Chest pain: Code(s): R07.9 - Chest pain, unspecified Status: Acute Assessment and Plan: Status post catheterization. Multi-vessel coronary disease. No intervention. Medical management of coronary disease (2) Atrial fibrillation with rapid ventricular response: Code(s): I48.91 - Unspecified atrial fibrillation Status: Acute Assessment and Plan: Sotalol. Will need anticoagulation prior to discharge (3) DM (diabetes mellitus), type 2, uncontrolled, periph vascular complic: Code(s): E11.51 - Type 2 diabetes mellitus with diabetic peripheral angiopathy without gangrene; E11.65 - Type 2 diabetes mellitus with hyperglycemia Status: Acute Assessment and Plan: Monitor blood sugars (4) Coronary artery disease: Qualifiers: Coronary Disease-Associated Artery/Lesion type: [place] artery [place] vs. transplanted heart: [place] heart Associated angina: with stable angina Qualified Code(s): I25.118 - Atherosclerotic heart disease of [place] coronary artery with other forms of angina pectoris Code(s): I25.10 - Atherosclerotic heart disease of [place] coronary artery without angina pectoris Status: Acute Assessment and Plan: Medical management (5) Primary hypertension: Code(s): I10 - Essential (primary) hypertension Status: Acute Assessment and Plan: Resume home meds Continue to monitor (6) Mixed hyperlipidemia: Code(s): E78.2 - Mixed hyperlipidemia Status: Acute Assessment and Plan: Patient not on a statin currently (7) PVD (peripheral vascular disease): Code(s): I73.9 - Peripheral vascular disease, unspecified Status: Acute DS: Summary Hospital Course Hospital Course: See discharge plan diagnoses Time Spent with Patient Time attestation: Total time spent providing and/or coordinating discharge services: Exam Narrative: Patient is laying in a stretcher Const: General: comfortable, no acute distress, well developed, alert and awake Nutritional Appearance: average body habitus Orientation/consciousness: patient oriented x3 Other: Well-appearing HENMT: Head: normal to inspection, normocephalic and atraumatic Ears: hearing grossly normal bilaterally Face and sinus: normal facial exam Eyes: General: appearance normal, both eyes and all related structures Pupils: Equal, round and reactive pupils present EOM: EOMs intact bilaterally Neck: Neck: full ROM, no lymphadenopathy and no JVD Thyroid: thyroid normal Lymphatic: no lymphadenopathy noted Resp: Effort & Inspection: normal respiratory effort and able to speak in complete sentences Auscultation: clear to auscultation bilaterally Cardio: Jugular venous distension: no JVD Rate: regular rate Rhythm: regular rhythm Heart sounds: S1 normal heart sound present and S2 normal heart sound present : General: Yes deferred Skin: Rashes: no rashes Wounds: no wounds Neuro: General: patient oriented x3, CN's II-XI intact bilaterally and Unable to assess gait Cranial nerves: Yes CN's II-XII intact bilaterally and Yes Equal, round and reactive pupils present Cognition (Neuro): normal cognition Speech: normal speech Gait exam (Neuro): Unable to assess gait Motor exam (neuro): 5/5 motor strength present throughout Sensory Exam: No Sensory deficit (Neuro) Extrem: General: normal to inspection, full ROM, no joint enlargement and no pedal edema DS: Data Data Completed and Pending Labs on day of discharge: Labs from last 24 hours 11/19/21 11/19/21 11/19/21 07:47 04:47 04:47 WBC 11.1 H RBC 5.22 Hgb 14.6 Hct 44.7 MCV 85.6 MCH 28.0 MCHC 32.7 RDW 13.8 Plt Count 199 MPV 11.6 H Sodium 139 Potassium 4.0 Chloride 105 Carbon Dioxide 25 Anion Gap 9 BUN 9 D
--- NOTE | 2021-11-19 09:32 | PM.PNCARD ---
Progress Note: A&P Assessment and Plan (1) Atrial fibrillation with rapid ventricular response: Code(s): I48.91 - Unspecified atrial fibrillation Status: Acute Assessment and Plan: Now in sinus rhythm on sotalol. QTc stable (437 msec after 5th loading dose). Receiving anticoagulation with apixaban. (2) Coronary artery disease: Qualifiers: Associated angina: with stable angina Coronary Disease-Associated Artery/Lesion type: [place] artery [place] vs. transplanted heart: [place] heart Qualified Code(s): I25.118 - Atherosclerotic heart disease of [place] coronary artery with other forms of angina pectoris Code(s): I25.10 - Atherosclerotic heart disease of [place] coronary artery without angina pectoris Status: Acute Assessment and Plan: History of CAD s/p CABG. Recent abnormal stress testas outpatient. [facility] yesterday revealed severe multivessel CAD involving high-grade distal left main stenosis and total occlusion of the RCA, total occlusion of the LAD after one septal and one diagonal, significant stenosis of OM1, and occlusion of a SVG to the RCA as well as SVG to the OM. There is a patent STONE graft to the LAD. Continue medical management for CAD including ASA, statin. Continue aggressive risk factor modification for CAD Subjective Date/time seen: 11/19/21 09:32 Interval history: Follow-up visit in this 66-year-old man with: Coronary artery disease with recent episodes of intermittent chest pain. He also has a history of paroxysmal atrial fib in came in over the weekend with a episode of symptomatic AF. Recent outpatient stress testing showed evidence of inferior ischemia prompting the recommendation for follow-up catheterization Patient feels well today and is asymptomatic. He has converted to sinus rhythm with the sotalol. Maintains on IV heparin. No chest pain or other symptoms this morning. Date of service 11/19/2021: Remains in sinus rhythm this morning. Feeling well. No chest pain, palpitations, shortness of breath. Review of Systems Constitutional: Constitutional: Reports no additional constitutional complaints Eyes: Eyes: Reports no additional eye complaints ENT: Reports system reviewed and no additional complaints, except as documented Cardiovascular: Cardiovascular: Reports as per HPI and Reports palpitations Respiratory: Respiratory: Reports no additional respiratory complaints Gastrointestinal: Gastrointestinal: Reports no additional gastrointestinal complaints Musculoskeletal: Musculoskeletal: Reports back pain Integumentary/Breasts: Skin/Breast: Reports system reviewed and no additional complaints, except as docu Neurologic: Reports system reviewed and no additional complaints, except as documented Endocrine: Endocrine: Reports no additional endocrine complaints and Reports palpitations Hematologic/Lymphatic: Hematologic/Lymphatic: Reports no additional hematologic/lymphatic complaints Allergic/Immunologic: Allergic/Immunologic: Reports no additional allergic/immunologic complaints Exam Const: General: comfortable and no acute distress HENMT: Mouth: Yes moist mucous membranes Eyes: Sclera: sclerae normal Pupils: Equal, round and reactive pupils present Neck: Neck: supple and no JVD Other: Normal carotid pulses Resp: Effort & Inspection: normal respiratory effort Auscultation: clear to auscultation bilaterally Cardio: Rate: regular rate Rhythm: regular rhythm and abnormal rhythm irregularly irregular Other: No murmur no gallop GI: Auscultation: normal bowel sounds Skin: General skin exam: normal color Neuro: Cranial nerves: Yes Equal, round and reactive pupils present Other: Normal cognition Extrem: Other: No edema good distal pulses. R groin arterial access site free from bleeding, hematoma. Objective Data Vital Signs Vital Signs: Vital Signs - 24 hr 11/18/21 10:57 11/18/21 10:30 11/18/21 10:35 Tem
== END 2021-11-19 13:19 | disposition home or self-care (01) | DRG 287 ==
LOC: ANHED 03:09 → ANHIMU 05:37
PROVIDERS: Specialist; Admitting Provider Internal Medicine; Emergency Provider Emergency Medicine; Visit Provider Chiropractor
PROC: 4A023N7 Measurement of Cardiac Sampling and Pressure, Left Heart, Percutaneous Approach (ICD-10-PCS; CPT 93459; principal; 2021-11-18 08:30)
DX: I25.10 Atherosclerotic heart disease of native coronary artery without angina pectoris (principal); I10 Essential (primary) hypertension; I48.0 Paroxysmal atrial fibrillation; E11.51 Type 2 diabetes mellitus with diabetic peripheral angiopathy without gangrene; I73.9 Peripheral vascular disease, unspecified; E11.65 Type 2 diabetes mellitus with hyperglycemia; E78.2 Mixed hyperlipidemia; Z86.19 Personal history of other infectious and parasitic diseases; Z79.82 Long term (current) use of aspirin; Z87.891 Personal history of nicotine dependence
CPT/HCPCS: 36415; 71045; 80048; 80053; 81001; 82948; 83690; 83880; 84484; 85025; 85027; 85610; 85730; 93005; 93459; 96365; 96375; 99285; A9270; C1769; C1887; C1894; J0360; J1644; J2250; J2270; J2310; J3010; J7030; J7040

== ENCOUNTER 2022-01-08 13:28 | Emergency (ER) | payer MEDICARE, SELFPAY ==
--- NOTE | 2022-01-08 | ECG_ITS ---
Measurements Intervals [place] Rate: 59 P: 23 DC: 167 QRS: 73 QRSD: 102 T: -40 QT: 418 QTc: 416 Interpretive Statements SINUS BRADYCARDIA ST-T WAVE ABNORMALITY IN INFERIOR LEADS- CONSIDER ISCHEMIA BASELINE ARTIFACT- I, II, III, AVR, AVL, AVF ABNORMAL ECG COMPARED TO ECG 11/18/2021 21:27:23 NO SIGNIFICANT CHANGES Electronically Signed On 01-10-2022 12:33:23 CDT by [place] Harry D.O.
--- NOTE | 2022-01-08 13:32 | ED.HA ---
HPI - Headache General Chief Complaint: Headache Stated Complaint: headache/buzzing in ears/confustion Time Seen by Provider: 01/08/22 13:32 Source: patient and RN notes reviewed History of Present Illness HPI Narrative: Patient is 66-year-old male who presents the urgent care with complaints of headache, buzzing in the ears, confusion and intermittent chest pains. Patient states that he has had bypass surgery 3 times and was in the hospital in November for stents and medication changes. Patient believes that his symptoms are due to his Eliquis and is unable to get into his doctor for at least another month. Patient was also taken off his metoprolol and placed on sotalol and also lowered his lisinopril. Patient is currently denying chest pain at this very moment and denying any shortness of breath. States that his pain increases with exertion. Patient is alert and oriented without any neurodeficits. No other acute complaints. No acute distress noted. Patient aware of the plan of care. Some parts of this dictation were generated by voice recognition software and may contain typographical and/or grammatical inaccuracies. Related Data Home Medications Medication Instructions Recorded Confirmed aspirin 81 mg chewable tablet 81 mg PO HS 08/09/20 11/16/21 (Jaqueline Chewable Low Dose Aspirin) metformin 500 mg tablet,extended 1,000 mg PO QAM 11/16/21 11/16/21 release 24 hr Allergies Allergy/AdvReac Type Severity Reaction Status Date / Time No Known Allergies Allergy Mild Verified 11/16/21 05:19 Review of Systems Review of Systems: CONSTITUTIONAL: Denies fever, chills, or sweats. EYES: Denies visual changes, redness, or discharge. ENT: Denies rhinorrhea, congestion, sore throat, or otalgia. Reports of tinnitus CARDIOVASCULAR: Reports of chronic chest pain RESPIRATORY: Denies cough or dyspnea. GASTROINTESTINAL: Denies abdominal pain, nausea, vomiting, or diarrhea. GENITOURINARY: Denies dysuria or hematuria. SKIN: Denies rash or itching. MUSCULOSKELETAL: Denies back pain, joint pain, or myalgia. NEUROLOGIC: Reports of headache and confusion All other systems reviewed are negative, except as documented in HPI. [facility] Past Medical History Medical History Arterial disease Benign hypertension Elevated LFTs Hepatitis C Vision loss of right eye Family History Family History (Updated 11/16/21 @ 05:29 by Sarah Connor RN) Father Carcinoma of colon Family history of cardiovascular disease Acute myocardial infarction Family history of coronary artery disease Hypertension Sibling Diabetes mellitus Family history of coronary artery disease Hx of CABG Family history of malignant neoplasm of breast in first degree relative Hypertension Sibling Diabetes mellitus Family history of coronary artery disease Hx of CABG Heart valve problem Hypertension Mother Family history of lung cancer Social History Social History Smoking status: Former smoker Tobacco type: cigarettes Second hand tobacco smoke exposure: No Smoking end date: 05/04/04 Alcohol intake: never Substance use: never Substance use type: does not use Last use: 15 years ago Spiritual care concerns: No Comments At the time of my signature, I reviewed and agree with the nursing past medical, surgical, social, and family history. There is no relevant family history pertinent to the patient complaint. Exam Narrative: GENERAL: This is a well-nourished, well-developed patient, in no apparent distress. HEAD: normocephalic, atraumatic. EYES: PERRL. Sclera clear/white. Vision is grossly intact. EARS: External ears normal, auditory canals clear and without drainage, TMs normal without perforation. Hearing grossly intact. NOSE: External nose normal with no obvious nasal discharge, nares without redness, no r
[2022-01-08 13:38] VITALS: BP 195/79; PULSE 66; RESP 16; TEMP 37; O2SAT 99
--- NOTE | 2022-01-08 13:46 | PC.NURSE ---
Patient with history of a-fib, also chest pain and open heart surgery. Presents today with increased confusion, feels clumsy. Refuses to go to hospital. Just want my blood pressure checked . Started on eliquis in November and he thinks this is related to the blood thinner.
--- NOTE | 2022-01-08 13:56 | PC.NURSE ---
EMS called and here with patient to transfer to [place]. Patient continues to refuse to be transferred.
== END 2022-01-08 14:21 | disposition left against medical advice (07) ==
PROVIDERS: Emergency Provider Nurse Practitioner Family; PCP Specialist
DX: R51.9 Headache, unspecified (principal); I10 Essential (primary) hypertension; Z87.891 Personal history of nicotine dependence; Z79.82 Long term (current) use of aspirin; I77.9 Disorder of arteries and arterioles, unspecified; R94.31 Abnormal electrocardiogram [ECG] [EKG]
CPT/HCPCS: 93005; 99213; G0463

== ENCOUNTER 2022-01-16 16:35 | Emergency (ER) | payer MEDICARE, SELFPAY ==
--- NOTE | ~2022-01-16 | CT_ITS ---
EXAMINATION: CT brain wo con DATE: 01/16/2022 18:57 INDICATION: Headache and dizziness. Tinnitus. TECHNIQUE: Computed tomography (CT) of the head was performed without intravenous contrast. The mA wa s adjusted according to patient size. Iterative reconstruction technique was employed. The dose-lengt h product was 681.00 mGy-cm. COMPARISON: None FINDINGS: There is no intracranial hemorrhage, acute infarction, or abnormal intracranial mass lesion . 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 The ventricles are normal in si ze. There is mild mucosal thickening in the paranasal sinuses. The orbits are normal. The mastoid air cells are normal. IMPRESSION: 1. 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 Reviewed, dictated and finalized at location A.
--- NOTE | ~2022-01-16 | XR_ITS ---
EXAMINATION: XR chest 2V DATE: 01/16/2022 18:37 INDICATION: Hypertension. Dizziness. Headache. TECHNIQUE: Frontal and lateral views of the chest were obtained. COMPARISON: Chest single view 11/16/2021, CT abdomen and pelvis 08/16/2015 FINDINGS: Calcified left lung nodules are consistent with old granulomas disc disease. No pleural eff usion or pneumothorax. The heart size is normal. Median sternotomy wires and mediastinal surgical cli ps are seen, likely from prior coronary artery bypass grafting. There is mild chronic anterior wedgin g of a midthoracic vertebral body. IMPRESSION: 1. No acute cardiopulmonary disease. Reviewed, dictated and finalized at location A.
[2022-01-16 16:50] VITALS: BP 167/71; PULSE 88; RESP 20; TEMP 37.1; O2SAT 99
--- NOTE | 2022-01-16 16:54 | ECG_ITS ---
Measurements Intervals [place] Rate: 69 P: 41 PA: 159 QRS: 66 QRSD: 105 T: -34 QT: 401 QTc: 432 Interpretive Statements SINUS RHYTHM BORDERLINE R WAVE PROGRESSION, ANTERIOR LEADS ST-T WAVE ABNORMALITY IN INFERIOR LEADS- CONSIDER ISCHEMIA ABNORMAL ECG COMPARED TO ECG 01/08/2022 13:48:59 SINUS RHYTHM NOW PRESENT Electronically Signed On 01-16-2022 21:35:23 CDT by [place] Harry D.O.
[2022-01-16 18:22] VITALS: BP 195/74; PULSE 66; RESP 18; O2SAT 98
--- NOTE | 2022-01-16 18:23 | ED.RECABL ---
HPI - Recheck/Abnormal Lab/Rx General Chief Complaint: Recheck/Abnormal Lab/Rx Stated Complaint: ELEVATED BP, HEADACHE Time Seen by Provider: 01/16/22 18:00 History of Present Illness HPI narrative: 66-year-old male presents to the emergency room this evening for evaluation for elevated blood pressure, headache, ringing in ears and feeling off balance. He says that he had a heart cath in November as well as being treated for A. fib. He says that they found 2 blockages that they were not able to stent. 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 He says that he does get chest pain off and on but does not have any chest pain today. He was started on Eliquis and sotalol due to the A. fib. His lisinopril was reduced to 5 mg from 20 mg. He has been struggling quite a bit with getting follow-up with primary care. He was seen at the urgent care today to try to get help with his medications. He is concerned that the medications might be causing the headache and the ear ringing. When he went to urgent care his blood pressure was 200/100 so they sent him to the emergency room. He says that his blood pressure was elevated but he thinks it was because he was so irritated because it was very difficult to be seen today. He reports that his headache is mild. The ear ringing and the feeling of being off balance has been intermittent. Related Data Home Medications Medication Instructions Recorded Confirmed aspirin 81 mg chewable tablet 81 mg PO HS 08/09/20 01/16/22 (Jaqueline Chewable Low Dose Aspirin) lisinopril 5 mg tablet 5 mg PO BID 01/16/22 01/16/22 metformin 500 mg tablet,extended 500 mg PO QAM 01/16/22 01/16/22 release 24 hr Allergies Allergy/AdvReac Type Severity Reaction Status Date / Time No Known Allergies Allergy Mild Verified 01/16/22 18:24 Review of Systems Review of Systems: CONSTITUTIONAL: Denies fever, chills, or sweats. EYES: Denies visual changes, redness, or discharge. ENT: Denies rhinorrhea, congestion, sore throat, or otalgia. reports ear ringing CARDIOVASCULAR: Denies chest pain today but has had chest pain off and on, palpitations, or edema. RESPIRATORY: Denies cough or dyspnea. GASTROINTESTINAL: Denies abdominal pain, nausea, vomiting, or diarrhea. GENITOURINARY: Denies dysuria or hematuria. SKIN: Denies rash or itching. MUSCULOSKELETAL: Denies back pain, joint pain, or myalgia. NEUROLOGIC:as per HPI PSYCHIATRIC: Denies anxiety or depression. [facility] Past Medical History Medical History Arterial disease Benign hypertension Elevated LFTs Hepatitis C Vision loss of right eye Family History Family History Father Carcinoma of colon Family history of cardiovascular disease Acute myocardial infarction Family history of coronary artery disease Hypertension Sibling Diabetes mellitus Family history of coronary artery disease Hx of CABG Family history of malignant neoplasm of breast in first degree relative Hypertension Sibling Diabetes mellitus Family history of coronary artery disease Hx of CABG Heart valve problem Hypertension Mother Family history of lung cancer Social History Social History (Updated 01/16/22 @ 11:31 by Keesha Multani) Social History: Caffeine-Coffee daily, tea occasionally Smoking status: Former smoker Tobacco type: cigarettes Second hand tobacco smoke exposure: No Smoking end date: 05/04/04 Alcohol intake: never Substance use: never Substance use type: does not use Last use: 15 years ago Spiritual care concerns: No Exam Narrative: GENERAL: Well-appearing, well-nourished, and in no acute distress. HEAD: Normocephalic, atraumatic. EYES: PERRLA and EOMI. ENT: Nares clear, no rhinorrhea or epistaxis. Mucous membranes moist. Oropharynx without tonsillar hypertrophy exudate or other lesions. Bilateral TMs pearly bragg nonbulging NE
[2022-01-16 18:42] LABS: Basophils Percent Auto 0.4 % (0.2-1.2); Eosinophils Absolute Auto 0.4 K/mm3 (0-0.3); Eosinophils Percent Auto 3.8 % (0-4.4); Hematocrit 42.7 % (42.0-52.0); Hemoglobin 14.3 g/dL (14.0-18.0); Immature Granulocyte Absolute 0.03 K/mm3 (0.00-0.031); Immature Granulocyte Percent A 0.3 % (0-0.5); Lymphocytes Absolute Auto 2.33 K/mm3 (0.9-3.2); Lymphocytes Percent Auto 24.4 % (18.3-44.2); Mean Corpuscular HGB Conc 33.5 g/dl (32-36); Mean Corpuscular Hemoglobin 28.2 pg (26-34); Mean Corpuscular Volume 84.2 fl (80-100); Mean Platelet Volume 11.5 fl (7.4-10.4); Monocytes Absolute Auto 0.7 K/mm3 (0.1-0.6); Monocytes Percent Auto 7.5 % (2.6-8.5); Neutrophils Absolute Auto 6.1 K/mm3 (1.3-6.7); Neutrophils Percent Auto 63.6 % (45.5-73.1); Platelet Count Result 225 k/mm3 (150-375); Red Blood Count 5.07 M/mm3 (4.6-6.20); White Blood Count 9.5 K/mm3 (4.5-10.0)
[2022-01-16 18:54] LABS: Alanine Aminotransferase 14 U/L (6-50); Albumin Level 4.9 g/dL (3.5-5.1); Alkaline Phosphatase 70 U/L (38-126); Anion Gap 15 mmol/L (8-16); Aspartate Amino Transferase 18 U/L (17-59); Bilirubin,Total 0.4 mg/dL (0.2-1.3); Blood Urea Nitrogen 12 mg/dL (9-20); Calcium 9.4 mg/dL (8.4-10.2); Carbon Dioxide 27 mmol/L (22-30); Chloride 99 mmol/L (98-107); Estimated CRCL calculation 89 ml/min; Estimated Glomerular Filt Rate > 60; Glucose 142 mg/dL (65-110); Magnesium 1.9 mg/dL (1.6-2.3); Sodium 141 mmol/L (137-145)
[2022-01-16 19:06] LABS: Troponin I < 0.012 ng/mL (0.000-0.034)
[2022-01-16 19:13] VITALS: BP 136/66; PULSE 62; RESP 17; O2SAT 100
[2022-01-16 19:58] VITALS: BP 142/68; PULSE 61; RESP 18; O2SAT 98
== END 2022-01-16 20:20 | disposition home or self-care (01) ==
PROVIDERS: Nurse Practitioner Family; Emergency Provider Emergency Medicine
DX: I10 Essential (primary) hypertension (principal); I48.91 Unspecified atrial fibrillation; I77.9 Disorder of arteries and arterioles, unspecified; Z86.19 Personal history of other infectious and parasitic diseases; Z87.891 Personal history of nicotine dependence; Z79.01 Long term (current) use of anticoagulants; R94.31 Abnormal electrocardiogram [ECG] [EKG]
CPT/HCPCS: 36415; 70450; 71046; 80053; 83735; 84484; 85025; 93005; 99284

== ENCOUNTER 2022-03-19 16:03 | Outpatient (CLI) | payer MEDICARE, SELFPAY ==
--- NOTE | ~2022-03-19 | CT_ITS ---
EXAMINATION: CT lumbar spine wo con DATE: 03/19/2022 16:26 INDICATION: Radiculopathy. Lumbar pain. Sciatica and muscle spasm. TECHNIQUE: Computed tomography (CT) of the lumbar spine was performed without intravenous contrast. A utomated exposure control and iterative reconstruction technique were employed. The dose-length produ ct was 1416.69 mGy-cm. COMPARISON: None FINDINGS: Alignment is normal. Vertebral body heights are normal. No fracture. Small Schmorl's node along the i nferior endplate of L2. Disc heights are normal. Mild to moderate bilateral sacroiliac osteoarthritis . Atherosclerotic calcifications along the abdominal aorta and its major branches including the bilat eral renal arteries extending into the bilateral renal tereso. Paravertebral soft tissues are unremarka ble. The following disc levels are specifically discussed: T11-T12: The disc does not extend beyond the endplate margin. There is mild bilateral facet joint ost eoarthritis. There is no neural foraminal stenosis. There is no central canal stenosis. T12-L1: The disc does not extend beyond the endplate margin. There is mild bilateral facet joint oste oarthritis. There is no neural foraminal stenosis. There is no central canal stenosis. L1-L2: The disc does not extend beyond the endplate margin. There is mild bilateral facet joint osteo arthritis. There is no neural foraminal stenosis. There is no central canal stenosis. L2-L3: Disc is bulging. There is mild bilateral facet joint osteoarthritis. There is mild bilateral n eural foraminal stenosis. There is mild central canal stenosis. L3-L4: Disc is bulging. There is mild bilateral facet joint osteoarthritis. There is moderate bilater al neural foraminal stenosis. There is mild central canal stenosis. L4-L5: Disc is bulging. There is mild bilateral facet joint osteoarthritis. There is mild to moderate bilateral neural foraminal stenosis. There is mild central canal stenosis. L5-S1: Disc is mildly bulging. There is mild bilateral facet joint osteoarthritis. There is mild bila teral neural foraminal stenosis. There is no central canal stenosis. IMPRESSION: 1. Mild lumbar spondylosis. No acute osseous abnormality. Reviewed, dictated and finalized at location B. ICER
== END 2022-03-19 16:04 | disposition home or self-care (01) ==
PROVIDERS: PCP Family Medicine; Visit Provider Nurse Practitioner Adult Health
DX: M54.30 Sciatica, unspecified side (principal); M47.26 Other spondylosis with radiculopathy, lumbar region
CPT/HCPCS: 72131

== ENCOUNTER 2022-04-16 01:35 | Day surgery (SDC) | payer MEDICARE, SELFPAY ==
[2022-04-04 08:15] VITALS: BMI 29.6
--- NOTE | 2022-04-15 16:54 | PM.HPGS ---
History of Present Illness History of Present Illness Consent: Risks, benefits, and alternatives have been discussed and questions answered. Patient agrees to proceed with procedure. Chief complaint: postive cologuard, hx colon polys, family hx of ca Narrative: Saw Thomas is a 66 year old male referred for colon cancer screening. Nine years ago he had removal of 4 or 5 polyps. Review of Systems Review of Systems: All systems reviewed & are unremarkable except as noted in HPI and below PMFSH Past Medical History Medical History Arterial disease Benign hypertension Elevated LFTs Hepatitis C Vision loss of right eye Family History Family History Father Carcinoma of colon Family history of cardiovascular disease Acute myocardial infarction Family history of coronary artery disease Hypertension Sibling Diabetes mellitus Family history of coronary artery disease Hx of CABG Family history of malignant neoplasm of breast in first degree relative Hypertension Sibling Diabetes mellitus Family history of coronary artery disease Hx of CABG Heart valve problem Hypertension Mother Family history of lung cancer Social History Social History Social History: Caffeine-Coffee daily, tea occasionally Smoking packs per day: 2 Smoking cigarettes per day: 40.0 Years smoked: 25 Smoking pack-years: 50.00 Smoking status: Former smoker Tobacco type: cigarettes Second hand tobacco smoke exposure: No Smoking end date: 05/04/04 Alcohol intake: never Substance use: never Substance use type: does not use Last use: 15 years ago Living arrangements: with family Spiritual care concerns: No Meds Home Medications and Allergies Home Medications Medication Instructions Recorded Confirmed Type aspirin 81 mg chewable tablet 81 mg PO HS 08/09/20 04/03/22 History (Jaqueline Chewable Low Dose Aspirin) apixaban 5 mg tablet (Eliquis) 5 mg PO BID 30 days #60 tabs 11/19/21 04/03/22 Rx metformin 500 mg tablet,extended 500 mg PO QAM 01/16/22 04/03/22 History release 24 hr sotalol 80 mg tablet 40 mg PO Q12HR 04/03/22 04/03/22 History lisinopril 40 mg tablet 40 mg PO DAILY #90 tabs 04/14/22 04/16/22 Rx Allergies Allergy/AdvReac Type Severity Reaction Status Date / Time No Known Allergies Allergy Mild Verified 04/16/22 06:42 Exam Resp: Auscultation: clear to auscultation bilaterally Cardio: Rate: regular rate Rhythm: regular rhythm GI: GI Palp: Yes Soft to palpation and No Tenderness to palpation present (GI) Assessment and Plan Assessment and plan (1) Colon cancer screening: Code(s): Z12.11 - Encounter for screening for malignant neoplasm of colon Status: Acute Assessment and Plan: Colonoscopy with possible biopsy or polypectomy or cautery or injection of substances.
[2022-04-16 06:44] VITALS: BP 146/67; PULSE 91; RESP 20; TEMP 36.2; O2SAT 98
[2022-04-16] MEDS: LACTATED RINGERS 1,000 ML 150 ML IV CONT (06:54)
[2022-04-16 06:56] LABS: Glucose Point of Care 185 mg/dl (65-105)
--- NOTE | 2022-04-16 07:34 | WPDANESEPPF ---
Anes - Initial Pre Proc Eval Procedure: Operation Date: 04/16/22 08:00 Proposed Procedures p Colonoscopy - Golden Rose MD Date/Time: 04/16/22 07:34 Surgeon: Golden Rose MD Pre Op Diagnosis: postive cologuard, hx colon polys, family hx of ca Patient Data Age: 66 Gender: M Height: 1.75 m Weight: 91 kg Last Vital Signs Temp 97.1 F L 04/16/22 06:44 Pulse 91 04/16/22 06:44 Resp 20 04/16/22 06:44 BP 146/67 H 04/16/22 06:44 Pulse Ox 98 04/16/22 06:44 O2 Del Method Room Air 04/16/22 06:44 Allergies Allergy/AdvReac Type Severity Reaction Status Date / Time No Known Allergies Allergy Mild Verified 04/16/22 06:42 Home Medications Medication Instructions Recorded Confirmed Type aspirin 81 mg chewable tablet 81 mg PO HS 08/09/20 04/03/22 History (Jaqueline Chewable Low Dose Aspirin) apixaban 5 mg tablet (Eliquis) 5 mg PO BID 30 days #60 tabs 11/19/21 04/03/22 Rx metformin 500 mg tablet,extended 500 mg PO QAM 01/16/22 04/03/22 History release 24 hr sotalol 80 mg tablet 40 mg PO Q12HR 04/03/22 04/03/22 History lisinopril 40 mg tablet 40 mg PO DAILY #90 tabs 04/14/22 04/16/22 Rx Laboratory Tests 04/16/22 06:50 POC Capillary Glucose 185 mg/dl H mg/dl (65-105) Patient hx anesthesia problems: none Family hx anesthesia problems: none Results Review: All pre-operative results and documents have been reviewed as part of the pre-operative evaluation. [facility] Past Medical History Medical History Arterial disease Benign hypertension Elevated LFTs Hepatitis C Vision loss of right eye Family History Family History Father Carcinoma of colon Family history of cardiovascular disease Acute myocardial infarction Family history of coronary artery disease Hypertension Sibling Diabetes mellitus Family history of coronary artery disease Hx of CABG Family history of malignant neoplasm of breast in first degree relative Hypertension Sibling Diabetes mellitus Family history of coronary artery disease Hx of CABG Heart valve problem Hypertension Mother Family history of lung cancer Social History Social History Social History: Caffeine-Coffee daily, tea occasionally Smoking packs per day: 2 Smoking cigarettes per day: 40.0 Years smoked: 25 Smoking pack-years: 50.00 Smoking status: Former smoker Tobacco type: cigarettes Second hand tobacco smoke exposure: No Smoking end date: 05/04/04 Alcohol intake: never Substance use: never Substance use type: does not use Last use: 15 years ago Living arrangements: with family Spiritual care concerns: No Anes - Eval Final PreProcedure Day of Procedure 04/16/22 07:34 Patient weight: normal Heart: regular rate and rhythm Lungs: clear to auscultation Airway: Mallampati scale class II Neurological: alert and oriented Last oral intake: >/= 8 hours ASA classification: III Emergent: no Anesthetic plan: proceed Anesthesia type and monitoring: general GIVS and standard monitoring Results Review: All pre-operative results and documents have been reviewed as part of the pre-operative evaluation. Informed Consent: The patient's anesthetic plan and its attendant risks and benefits were discussed with the patient/family/POA. Questions were solicited and answers provided to the satisfaction of the patient/family/POA.
[2022-04-16 08:06] VITALS: BP 96/49; PULSE 73; RESP 19; O2SAT 95
[2022-04-16 08:16] VITALS: BP 121/66; PULSE 72; RESP 20; O2SAT 97
[2022-04-16 08:26] VITALS: BP 126/67; PULSE 70; RESP 15; O2SAT 95
== END 2022-04-16 08:32 | disposition home or self-care (01) ==
PROVIDERS: PCP Family Medicine; Visit Provider Internal Medicine Gastroenterology
PROC: 0DJD8ZZ Inspection of Lower Intestinal Tract, Via Natural or Artificial Opening Endoscopic (ICD-10-PCS; CPT 45378; principal; 2022-04-16 08:00)
DX: Z12.11 Encounter for screening for malignant neoplasm of colon (principal); K57.30 Diverticulosis of large intestine without perforation or abscess without bleeding; D12.3 Benign neoplasm of transverse colon; R19.5 Other fecal abnormalities; Z80.0 Family history of malignant neoplasm of digestive organs; I77.9 Disorder of arteries and arterioles, unspecified; I10 Essential (primary) hypertension; Z86.19 Personal history of other infectious and parasitic diseases; Z87.891 Personal history of nicotine dependence; Z79.01 Long term (current) use of anticoagulants; Z79.84 Long term (current) use of oral hypoglycemic drugs; Z79.82 Long term (current) use of aspirin
CPT/HCPCS: 45385; 82948; 88305; J2704; J7120

== ENCOUNTER 2023-08-17 09:21 | Outpatient (CLI) | payer MEDICARE, SELFPAY ==
--- NOTE | ~2023-08-17 | XR_ITS ---
AP and lateral views of the bilateral hips Clinical history: Pain Findings: No acute fracture or dislocation is seen. Osseous alignment is anatomic. There is minimal d egenerative change of both hip joints. Soft tissues are unremarkable. Impression: Minimal degenerative change of both hip joints. Reviewed, dictated and finalized at location . Impression: Minimal degenerative change of both hip joints.
--- NOTE | ~2023-08-17 | XR_ITS ---
Right Hand Technique: PA, oblique, and lateral views were obtained. Clinical History: Pain Findings: No acute fracture or dislocation is seen. Osseous alignment is anatomic. There is mild dege nerative change of the second and third MCP joints. Soft tissues are unremarkable. Impression: Mild degenerative change of the second and third MCP joints. Reviewed, dictated and finalized at location . Impression: Mild degenerative change of the second and third MCP joints.
--- NOTE | ~2023-08-17 | XR_ITS ---
EXAMINATION: XR sacrum coccyx min 2V DATE: 08/17/2023 10:06 INDICATION: Low back pain. Bilateral hip pain. TECHNIQUE: 3 views of the sacrum and coccyx were obtained. COMPARISON: CT lumbar spine 03/09/22 FINDINGS: Bone alignment is normal. No fracture. There is mild lumbar spondylosis. There is mild oste oarthritis of the hips. There is a stent in right external iliac artery. IMPRESSION: 1. Mild osteoarthritis of the hips. Reviewed, dictated and finalized at location E.
--- NOTE | ~2023-08-17 | XR_ITS ---
EXAMINATION: XR lumbar spine 2-3V DATE: 08/17/2023 10:06 INDICATION: Low back pain. TECHNIQUE: 3 views of lumbar spine were obtained. COMPARISON: Lumbar spine CT 03/19/2022 FINDINGS: Bone alignment is normal. Vertebral body heights are normal. There is mildly decreased disc height at L2-L3. There is multilevel facet joint osteoarthritis, severe in lower lumbar spine. IMPRESSION: 1. Mild lumbar spondylosis. Reviewed, dictated and finalized at location E. IMPRESSION: 1. Mild lumbar spondylosis.
--- NOTE | ~2023-08-17 | XR_ITS ---
Cervical Spine: AP, lateral, open-mouth views Clinical History: Pain Findings: The normal lordotic curve is maintained. The vertebral bodies and posterior elements appea r intact. There is moderate to advanced degenerative disc narrowing at C6-C7. No instability on flexi on or extension views. Pre-vertebral soft tissues are unremarkable. Impression: Moderate to advanced degenerative disc changes C6-C7. Reviewed, dictated and finalized at location . Impression: Moderate to advanced degenerative disc changes C6-C7.
== END 2023-08-17 09:22 | disposition home or self-care (01) ==
LOC: ANHIMG 09:33
PROVIDERS: PCP Family Medicine; Visit Provider Registered Nurse
DX: M16.0 Bilateral primary osteoarthritis of hip (principal); M47.896 Other spondylosis, lumbar region; M50.323 Other cervical disc degeneration at C6-C7 level
CPT/HCPCS: 72050; 72100; 72220; 73130; 73521

== ENCOUNTER 2024-03-10 14:23 | Outpatient (CLI) | payer MEDICARE, SELFPAY ==
--- NOTE | ~2024-03-10 | CT_ITS ---
CT Scan of the Chest without Contrast: Clinical Indication: Lung cancer screening, nicotine dependence Technique: Contiguous sections were acquired throughout the chest without intravenous contrast. Dose reduction technique was used on this scan by utilizing automated exposure control and iterative recon struction technique. The dose-length product (DLP) was 146.24 mGy-cm. Findings: There is no evidence of any significant mediastinal, hilar or axillary lymphadenopathy. There are ath erosclerotic calcifications of the aorta and coronary arteries. Probable prior CABG. There is no evidence of pleural or pericardial effusion. Calcified left lower lobe granuloma present. No other pulmonary nodule evident. Images through the upper abdomen reveal small gallstones. Impression: Lung RADS 2: Benign appearance. 12 month follow-up screening CT advised. Reviewed, dictated and finalized at [facility]. MAKER Impression: Lung RADS 2: Benign appearance. 12 month follow-up screening CT advised.
== END 2024-03-10 14:24 | disposition home or self-care (01) ==
LOC: ANHIMG 14:24
PROVIDERS: PCP Family Medicine; Visit Provider Registered Nurse
DX: Z12.2 Encounter for screening for malignant neoplasm of respiratory organs (principal); Z87.891 Personal history of nicotine dependence
CPT/HCPCS: 71271